=== PATIENT | male | born 1965 | race American Indian/Alaskan Native ===

== ENCOUNTER 2018-12-14 10:10 | Outpatient (CLI) | payer OTHER ==
--- NOTE | 2018-12-14 21:13 | XRay Report ---
PROCEDURE: XR KNEE BILAT 1-2V HISTORY: BACK AND NECK INJURY, PLEASE BRING WHEELCHAIR FINDINGS: AP and lateral views of the right knee and left knee were acquired. On the right, no fracture is seen. There are enthesophytes at the quadriceps tendon insertion, patell ar tendon origin patellar tendon insertion. There is a knee joint effusion. There is some calcificati on medial to the medial femoral condyle which could be in the medial collateral ligament, possibly co nsequence of prior MCL injury. On the left, no fracture is seen in the left knee. There are enthesophytes at the quadriceps tendon i nsertion patellar tendon origin and patellar tendon insertion. There is a knee joint effusion. IMPRESSION: No fracture is seen in either knee Bilateral knee joint effusions This document is electronically signed by Malcolm Monsivais MD., December 14 2018 09:11:11 PM ET
== END 2018-12-14 10:11 | disposition home or self-care (01) ==
LOC: XRAY 10:10
PROVIDERS: ATTEND Internal Medicine
DX: M25.462 Effusion, left knee (principal); M25.461 Effusion, right knee; I10 Essential (primary) hypertension